=== PATIENT | male | born 1975 | race Caucasian/White ===

== ENCOUNTER 2016-11-15 16:40 | Emergency (ER) | payer OTHER ==
[~2016-11-15] VITALS: Ht 182.9 cm; Wt 110.2 kg
--- NOTE | ~2016-11-15 | CT2 ---
STS. [facility] A Service of [facility] & [facility] RADIOLOGY TEXT RESULTS PATIENT: JESÚS VELAZQUEZ LOCATION: SED : 79 UNIT #: [id number] AGE: [address]: MARKEL TERRELL SEX: M ORDER DR: [id number] [place] [id number] MR#: [id number] Acc #: [id number] NAME: JESÚS VELAZQUEZ : 1975 SEX: M STUDY DATE/TIME: 11/15/2016 19:23 UNIT: SED ROOM: STUDY DESCRIPTION: CT Abd and Pelv W Cont Attending Physician: Markel Terrell Aprn Ordering Physician: Markel Terrell Aprn Primary Care Physician: Primary Care Physician No MEDICAL IMAGING REPORT This report is preliminary unless electronic signature is present. EXAM CT abdomen and pelvis with IV contrast COMPARISON None INDICATIONS 41-year-old male with right-sided lower quadrant abdominal pain and nausea intermittently for 2 months, history of hemochromatosis. Prior cholecystectomy. TECHNIQUE Axial CT imaging of the abdomen and pelvis was performed after IV administration of 100 mL of Isovue-370. Coronal and sagittal reformats were constructed. This CT exam was performed with one or more of the following radiation dose reduction techniques: automatic exposure control, adjustment of mA and/or kV according to patient size, and iterative reconstruction. FINDINGS There is mild anterior osteophyte formation at the sacroiliac joints. No acute fractures or suspicious osseous lesions. Small posterior disc protrusion at L5-S1 with small to moderate posterior disc protrusion at L4-L5. No acute findings in the lower chest. There has been prior cholecystectomy. There is no evidence of cirrhosis. There is normal size of the liver. No focal hepatic lesions. Pancreas, spleen and adrenal glands are unremarkable. There is a small splenule at the anterior aspect of the spleen. No hydronephrosis or hydroureter. No renal or ureteral calculi. No focal renal lesions. Urinary bladder and prostate gland are unremarkable. No evidence of bowel obstruction. The appendix is normal. No free fluid or pneumoperitoneum. Normal caliber of the abdominal aorta, patency at its main branches. No evidence of venous STS. [facility] A Service of [facility] & [facility] RADIOLOGY TEXT RESULTS PATIENT: JESÚS VELAZQUEZ LOCATION: SED : 79 UNIT #: [id number] AGE: [address]: MARKEL TERRELL SEX: M ORDER DR: lisa. There is 1.2 cm short axis portocaval lymph node, likely reactive. Separate gastrohepatic space lymph node measuring up to 1 cm short axis, also likely reactive. There are scattered subcentimeter lymph nodes throughout the mesentery, not pathologically enlarged by CT size criteria. There are also separate retroperitoneal lymph nodes which are not pathologically enlarged. IMPRESSION 1. No acute abnormality in the abdomen, pelvis or imaged lower chest. 2. In particular, the appendix is normal. 3. Top normal size of a gastrohepatic space lymph node measuring 1 cm short axis with mild enlarged portocaval lymph node measuring up to 1.2 cm short axis. These are likely reactive. 4. Prior cholecystectomy. 5. Multilevel posterior disc protrusions of the lower lumbar spine. Dictated by... Horace Johnson M.D. THIS IS AN ELECTRONICALLY VERIFIED REPORT Horace Johnson M.D. at 11/22/2016 8:44 PM BLM/to TD: 11/16/2016 11:26 JOB #: [id number] MEDICAL IMAGING REPORT Page 1 of 1
[2016-11-15] MEDS ORDERED: ATENOLOL50 MG (16:54)
[2016-11-15] MEDS ORDERED: BUSPAR15 M3 (16:54)
[2016-11-15 17:41] LABS: BASOPHIL# 0.1 X10e3 (0-0.3); BASOPHIL% 1.1 % (0-2.5); EOSINOPHIL# 0.5 X10e3 (0-0.7); EOSINOPHIL% 4.8 % (0.0-7.0); HEMATOCRIT 44.4 % (38.0-50.0); HEMOGLOBIN 15.7 gm/dL (13.0-16.0); LYMPHOCYTE% 30.4 % (17.0-45.0); MEAN CELL VOLUME 91.6 FL (83-96); MEAN CORPUSCULAR HEMOGLOBIN 32.2 PG (28-34); MEAN CORPUSCULAR HGB CONC 35.2 g/dL (30-36); MEAN PLATELET VOLUME 7.5 FL (6.5-11.5); MONOCYTE# 0.6 X10e3 (0-1.0); MONOCYTE% 6.2 % (3.0-12.0); NEUTROPHIL# 5.6 X10e3 (1.5-7.1); NEUTROPHIL% 57.5 % (40-75); PLATELET COUNT 188 X10e3 (140-420); RED BLOOD COUNT 4.85 X10e (3.90-5.60); RED CELL DISTRIBUTION WIDTH 13.8 % (11.0-15.5); WHITE BLOOD COUNT 9.8 X10e3 (4.0-10.5)
[2016-11-15 17:42] LABS: URINE SOURCE CLEAN CATCH
[2016-11-15 17:44] LABS: URINE APPEARANCE CLEAR; URINE BILIRUBIN NEG (NEG); URINE BLOOD NEG (NEG); URINE COLOR YELLOW; URINE GLUCOSE NEG (NORM); URINE KETONE NEG (NEG); URINE LEUKOCYTE ESTERASE NEG (NEG); URINE NITRATE NEG (NEG); URINE PROTEIN NEG (NEG)
[2016-11-15 17:44] LABS: DIFF IND NO
[2016-11-15 17:45] LABS: MICRO INDICATED? NO
[2016-11-15 18:00] LABS: BILIRUBIN, DIRECT 0.1 mg/dL (0.0-0.2); BILIRUBIN,INDIRECT 0.4 mg/dL (0.0-0.9); BILIRUBIN,TOTAL 0.5 mg/dL (0.2-2.0); GLOM FILT RATE Estimated 94.4 mL/min (>60); POTASSIUM 3.4 mmol/L (3.5-5.1); PROTEIN TOTAL SERUM 6.8 g/dL (6.0-8.3)
== END 2016-11-15 20:24 | disposition home or self-care (01) ==
LOC: SED 16:40
PROVIDERS: Nurse Practitioner Family
DX: R10.9 Unspecified abdominal pain (principal); M54.9 Dorsalgia, unspecified; I10 Essential (primary) hypertension; F17.200 Nicotine dependence, unspecified, uncomplicated; Z90.49 Acquired absence of other specified parts of digestive tract; Z88.5 Allergy status to narcotic agent
CPT/HCPCS: 36415; 74177; 80048; 80076; 81003; 82150; 83690; 85025; 96361; 96374; 99284; J1885; Q9967